=== PATIENT | male | born 1990 | race African-American/Black ===

== ENCOUNTER 2023-02-08 02:04 | Emergency (ER) | payer MEDICAID ==
[~2023-02-08] VITALS: Ht 193 cm; Wt 63.5 kg
[2023-02-08 02:14] VITALS: BP_SYST 131; PULSE 70; RESP 20; TEMP 101; O2SAT 99
[2023-02-08] MEDS ORDERED: ACETAMINOPHEN 325 MG TABLET PO ONE (02:30)
[2023-02-08 02:59] LABS: INFLUENZA TYPE A Negative (NEGATIVE); INFLUENZA TYPE B NEGATIVE (NEGATIVE)
[2023-02-08] MEDS ORDERED: DIF100 PO (03:07)
[2023-02-08] MEDS ORDERED: AUG875 PO (03:07)
[2023-02-08 03:17] VITALS: BP_SYST 128; PULSE 69; RESP 20; TEMP 99.1; O2SAT 99
== END 2023-02-08 03:17 | disposition home or self-care (01) ==
LOC: SED 02:04
DX: J36 Peritonsillar abscess (principal); B36.0 Pityriasis versicolor; M79.10 Myalgia, unspecified site; R05.9 Cough, unspecified; F17.210 Nicotine dependence, cigarettes, uncomplicated; Z88.1 Allergy status to other antibiotic agents; Z79.899 Other long term (current) drug therapy; Z20.822 Contact with and (suspected) exposure to COVID-19
CPT/HCPCS: 36415; 99283